=== PATIENT | female | born 1955 | race Caucasian/White ===

== ENCOUNTER 2021-05-17 06:43 | Day surgery (SDC) | payer OTHER ==
[2021-05-15 14:59] LABS: Absolute Lymphocytes (CBC) 2.3 K/uL (0.7-4.9); Lymphocytes % 24.4 % (15.3-44.8); MPV 7.9 fL (7.6-11.3); RBC Red Blood Cell Count 5.15 M/uL (3.86-4.86)
[2021-05-15 15:03] LABS: Potassium 3.1 mmol/L (3.5-5.1)
--- NOTE | 2021-05-15 15:13 | RAD REPORT ---
EXAM DESCRIPTION: RAD - Chest Pa And Lat (2 Views) - 05/15/2021 3:02 pm CLINICAL HISTORY: pre op Chest pain. COMPARISON: <Comparisons> FINDINGS: The lungs are mildly emphysematous but clear. The heart is normal in size. No displaced fr actures. Small moderate hiatal hernia. Lumbar orthopedic hardware noted.
--- NOTE | 2021-05-15 15:15 | RAD REPORT ---
EXAM DESCRIPTION: RAD - Lumbar Spine 3 Views - 05/15/2021 3:02 pm CLINICAL HISTORY: pre op Radiculopathy COMPARISON: No comparisons FINDINGS: Lumbar spine fusion is present with hardware in place. Cholecystectomy clips. Mild levosco liosis of lumbar spine is present. The BB marker is present dorsum of the spine soft tissues with sli ght prominence of the soft tissues in the region.
[2021-05-17] MEDS ORDERED: BUPIVACAINE 0.5% Inj,MDV 50 mL VIAL ONE (06:58)
[2021-05-17] MEDS ORDERED: propofoL 200 MG/20 ML VIAL IV ONE (07:12)
[2021-05-17] MEDS ORDERED: MIDAZOLAM HCL 2 MG/2 ML INJ ONE (07:12)
[2021-05-17] MEDS ORDERED: FENTANYL CITR 100 MCG/2 ML ONE (07:12)
[2021-05-17] MEDS ORDERED: KETOROLAC 30 MG/ML INJ ONE (07:13)
[2021-05-17] MEDS ORDERED: dexAMETHasone 10 MG/ML VIAL ONE (07:13)
[2021-05-17] MEDS ORDERED: LIDOCAINE 1% MPF 30 ML VIAL ONE (07:14)
[2021-05-17] MEDS ORDERED: ONDANSETRON 4 MG/2 ML VIAL ONE (07:14)
[2021-05-17] MEDS ORDERED: Ringers Lactate 1,000 ML IV ONE (07:24)
[2021-05-17] MEDS ORDERED: CEFAZOLIN/NS 1gm 1 GM/50 ML BAG ONE (07:46)
[2021-05-17 07:51] LABS: Potassium 3.2 mmol/L (3.5-5.1)
[2021-05-17] MEDS ORDERED: BUPIVACAINE 0.5% PF 10 ML VIAL ONE (08:35)
--- NOTE | 2021-05-17 09:24 | P.BOP ---
Preoperative diagnosis: lower back closer subQ mass Postoperative diagnosis: same Primary procedure: Excisional biopsy of lower back closer subQ mass 3x3cm Estimated blood loss: <10cc Specimen: mass Findings: mass Anesthesia: General Transferred to: Recovery Room Condition: Good
[2021-05-17 09:47] VITALS: O2SAT 100
[2021-05-17 11:22] VITALS: BP 118/86; TEMP 98.2
== END 2021-05-17 11:13 | disposition home or self-care (01) ==
LOC: OR 06:43
PROVIDERS: ATTEND Surgery
PROC: 0JB70ZZ Excision of Back Subcutaneous Tissue and Fascia, Open Approach (ICD-10-PCS; principal; 2021-05-17 08:30)
DX: L72.0 Epidermal cyst (principal); Z20.822 Contact with and (suspected) exposure to COVID-19
CPT/HCPCS: 93005; 85025; 80048 ×2; 36415 ×2; 88304; 71046; 72100; 11403; U0003; J2704; J2250; J3010; J1100; J0690; J7120; J2405; 88305